=== PATIENT | male | born 1990 | race Caucasian/White ===

== ENCOUNTER 2019-06-15 15:30 | Emergency (ER) | payer OTHER ==
--- NOTE | 2019-06-15 15:39 | ED Physician Documentation ---
PD HPI HEAD INJURY - Stated complaint Stated Complaint: HEAD LAC - History obtained from History obtained from: Patient - History of Present Illness Mechanism of head injury: Laceration (he struck top of head on airplane part and got laceration. Not hard impact and no LOC nor concussive symptoms.) Where head injury occurred: Work Timing - onset: Today Location of injury: Top (frontal vertex) Quality of pain: Aching Associated symptoms: No: LOC, AMS, Nausea / vomiting Contributing factors: No: Anticoagulated Similar symptoms before: Has not had sx before Recently seen: Not recently seen Review of Systems Eyes: denies: Decreased vision, Photophobia GI: denies: Nausea, Vomiting Skin: reports: Laceration (s) Neurologic: denies: Confused, Altered mental status, Headache PD PAST MEDICAL HISTORY - Past Medical History Past Medical History: No - Allergies Allergies/Adverse Reactions: Allergies Allergy/AdvReac Type Severity Reaction Status Date / Time No Known Drug Allergies Allergy Verified 06/15/19 15:56 PD ED PE NORMAL - Vitals Vital signs reviewed: Yes - General General: Alert and oriented X 3, No acute distress, Well developed/nourished - HEENT HEENT: Other (anterior vertex of scalp with 2.4 cm laceration through scalp, with slight bleeding, no FB. Edges are crisp. ) - Derm Derm: Normal color, Warm and dry - Neuro Neuro: Alert and oriented X 3, No motor deficit, Normal speech Results - Vitals Vitals: Vital Signs - 24 hr 06/15/19 15:54 Temperature 37 C Heart Rate 87 Respiratory 18 Rate Blood Pressure 140/80 H O2 Saturation 98 Oxygen O2 Source Room air Procedures - Laceration (location) frontal vertex scalp Length in cm: 2.4 Wound type: Linear, Into subcut fat, Clean Anesthesia: LET Wound Preparation: Irrigated copiously NS, Wound explored, To the base. No: FB identified Skin layer closure: Mateusz (8) Other: Patient tolerated well, No complications, Tetanus UTD Departure - Departure Disposition: 01 Home, Self Care Clinical Impression: Scalp laceration Qualifiers: Encounter type: initial encounter Qualified Code(s): S01.01XA - Laceration without foreign body of scalp, initial encounter Condition: Stable Record reviewed to determine appropriate education?: Yes Instructions: ED Laceration Scalp Stitch Or Stap Comments: It is okay to wash and shower. Clean off the wound twice a day with soap and water, or peroxide and water. Apply some antibiotic ointment to it to keep it moist. Also to watch for signs of infection such as purulence, redness or increasing pain. Return to your primary care or the ER at the specified time for suture removal. Staple removal 7 or 8 days. Tylenol or ibuprofen if needed for pains. Discharge Date/Time: 06/15/19 16:55
[2019-06-15] MEDS ORDERED: IBUPROFEN 600 MG TABLET PO STA (15:52)
[2019-06-15] MEDS ORDERED: ACETAMINOPHEN 325 MG TABLET PO STA (15:52)
[2019-06-15] MEDS ORDERED: LIDOCAINE-EPINEPH-TETRACAINE 3 ML SYRINGE TOP STA (15:52)
[2019-06-15 15:55] VITALS: BP 140/80
== END 2019-06-15 16:55 | disposition home or self-care (01) ==
LOC: ED 15:30
DX: S01.01XA Laceration without foreign body of scalp, initial encounter (principal); W26.8XXA Contact with other sharp object(s), not elsewhere classified, initial encounter; Y92.89 Other specified places as the place of occurrence of the external cause; Y99.1 Military activity
CPT/HCPCS: 12031; 99282; A9270